=== PATIENT | female | born 1980 | race Caucasian/White ===

== ENCOUNTER 2021-10-09 11:30 | Emergency (ER) | payer SELFPAY ==
[2017-06-28 11:00] VITALS: BP 132/87
[~2021-10-09] VITALS: Ht 157.5 cm; Wt 113.0 kg
[~2021-10-09 11:30] MED LIST: HYDR-2761 PO
[2021-10-09] MEDS ORDERED: AMOX1TAB61 PO (12:16)
--- NOTE | 2021-10-09 12:17 | PHYS DOC ---
Past Medical History Past Medical History: No Pertinent History Additional Past Medical Histor: meth use Past Surgical History: Cholecystectomy, Other Additional Past Surgical Histo: left toe Smoking Status: Former Smoker Alcohol Use: Occasionally Drug Use: Marijuana General Adult EDM: Chief Complaint: Toothache HPI: HPI: Patient is a 41-year-old female who presents emergency department for dental pain. Patient reports that she broke her bottom right molar yesterday. She been taking Tylenol and ibuprofen for the pain. She does not have a dentist. She reports meth use. Patient denies any fevers, chest pain, dizziness, headache, shortness of breath. Patient is mildly hypertensive in the emergency department with a blood pressure of171/102. Patient does not have a history of hypertension. She is asymptomatic at this time. Review of Systems: Review of Systems: 14 body systems of the review of systems have been reviewed. See HPI for pertinent positive and negative responses, otherwise all other systems are negative, nonpertinent or noncontributory Heart Score: C/O Chest Pain: N/A Risk Factors: Risk Factors: DM, Current or recent (<one month) smoker, HTN, HLP, family history of CAD, obesity. Risk Scores: Score 0 - 3: 2.5% MACE over next 6 weeks - Discharge Home Score 4 - 6: 20.3% MACE over next 6 weeks - Admit for Clinical Observation Score 7 - 10: 72.7% MACE over next 6 weeks - Early Invasive Strategies Allergies: Allergies: Allergies Coded Allergies Type Severity Reaction Last Updated Verified No Known Drug Allergies 04/25/14 No Physical Exam: PE: Constitutional: Well developed, well nourished, no acute distress, non-toxic appearance. [] HENT: Normocephalic, atraumatic, bilateral external ears normal, numerous dental caries and missing teeth, broken right bottom molar, oropharynx moist, no oral exudates,no facial swelling, no visible abscerss, nose normal. [] Eyes: PERRL, EOMI, conjunctiva normal, no discharge. [] Neck: Normal range of motion, no stridor Cardiovascular:Heart rate regular rhythm, no murmur [] Lungs & Thorax: Bilateral breath sounds clear to auscultation [] Abdomen: Bowel sounds normal, soft, no tenderness, no masses, no pulsatile masses. [] Skin: Warm, dry, no erythema, no rash. [] Back: Normal range of motion Extremities: No tenderness, no cyanosis, no clubbing, ROM intact, no edema. [] Neurologic: Alert and oriented X 3, normal motor function, normal sensory function, no focal deficits noted. [] Psychologic: Affect normal, judgement normal, mood normal. [] Current Patient Data: Vital Signs: Vital Signs Date Time Temp Pulse Resp B/P (MAP) Pulse Ox O2 Delivery O2 Flow Rate FiO2 10/09/21 11:57 97.9 83 16 96 Room Air 97.9 EKG: EKG: [] Radiology/Procedures: Radiology/Procedures: [] Course & Med Decision Making: Course & Med Decision Making Pertinent Labs and Imaging studies reviewed. (See chart for details) [] Patient presents to the emergency department for dental pain following a broken tooth. I offered patient pain medication but she declined. I told her that she will need to follow-up with a dentist and she was given clinic list. Patient was discharged home with an antibiotic. She is advised to start and finish it completely. I discussed with patient all findings and diagnostic testing as well as the need to follow-up with PCP for further evaluation and treatment or return to the ER if any new or worsening symptoms. Strict return precautions were also discussed at length. Patient voiced understanding and agreement with the plan. Patient is hemodynamically stable at the time of disposition. Chaparrita Disclaimer: Chaparrita Disclaimer: This electronic medical record was generated, in whole or in part, using a voice recognition dictation system. Departure Departure Impression: Primary Impression: Pain, dental Disposition: HOME / SELF CARE / HOMELESS Condition: GOOD Referrals: NO PCP (PCP) Patient Instructions: Dental Caries, Dental Pain Additional Instructions: You are seen in the emergency department for dental pain. You are being discharged home with an antibiotic. Please start and finish completely. You can continue to take Tylenol and/or ibuprofen for your pain at home. You will need to follow-up with a dentist as soon as possible. Please see the attached list of dental clinics that you can follow-up with. Return to the emergency department if you develop worsening of your pain, high fevers refractory to treatment, intractable nausea or vomiting, headache or any new or worsening concerns. Scripts Amoxicillin/Potassium Clav (AUGMENTIN [id number] TABLET) 1 Each Tablet 1 TAB PO BID for 10 Days, #20 TAB 0 Refills Prov: FROILAN ARGUELLO APRN 10/09/21 FROILAN ARGUELLO APRN Oct 09, 2021 12:17
== END 2021-10-09 12:22 | disposition home or self-care (01) ==
LOC: ER 11:30
DX: K08.89 Other specified disorders of teeth and supporting structures (principal); Z87.891 Personal history of nicotine dependence
CPT/HCPCS: 99283